=== PATIENT | male | born 1940 | race Caucasian/White ===

== ENCOUNTER 2020-06-16 13:28 | Observation (INO) ==
[2020-06-16] MEDS ORDERED: Naloxone 0.4 MG/ML INJ IVP PRN (15:09)
[2020-06-16] MEDS ORDERED: Ondansetron ODT 4 MG TAB.RAPDIS SL PRN (15:09)
[2020-06-16] MEDS ORDERED: Mag Hydrox/Al Hydrox/Simeth 30 ML UDC PO PRN (15:09)
[2020-06-16] MEDS ORDERED: Acetaminophen 325 MG TABLET PO PRN (15:09)
[2020-06-16 15:42] LABS: Basophils % 0.9 %; Eosinophils # 0.1 K/mcL (0.0-0.6); Eosinophils % 1.9 %; Hematocrit 40.6 % (37.5-50.1); Hemoglobin 13.8 g/dL (12.9-16.9); Immature Granulocytes % 0.2 % (0-4); Lymphocytes # 1.8 K/mcL (0.6-4.6); Lymphocytes % 38.1 %; Mean Corpuscular Hemoglobin 32.4 pg (28.0-33.3); Mean Corpuscular Volume 95.3 fL (83.0-100.0); Mean Platelet Volume 12.1 fL (9.4-12.4); Monocytes # 0.5 K/mcL (0.0-1.3); Monocytes % 11.2 %; Neutrophils # 2.2 K/mcL (1.6-8.9); Platelet Count 149 K/mcL (140-400); Red Blood Count 4.26 M/mcL (4.19-5.50); Red Cell Distribution Width 13.8 % (11.5-14.5); Segmented Neutrophils % 47.7 %; White Blood Count 4.6 K/mcL (4.3-11.1)
[2020-06-16 16:04] LABS: Alanine Aminotransferase 18 Units/L (7-52); Albumin 4.2 g/dL (3.5-5.7); Albumin/Globulin Ratio 1.1 (1.1-2.2); Alkaline Phosphatase 37 Units/L (34-104); Aspartate Amino Transferase 20 Units/L (13-39); BUN/Creatinine Ratio 13 (6-26); Bilirubin,Total 0.8 mg/dL (0.3-1.0); Blood Urea Nitrogen 11 mg/dL (8-23); Carbon Dioxide 24 mEq/L (23-29); Chloride 107 mEq/L (98-107); Globulin 3.9 g/dL (2.4-3.5); Glucose 97 mg/dL (70-105); Magnesium 1.7 mg/dL (1.6-2.6); Osmolality,Calculated 285 (280-300); Potassium 4.2 mEq/L (3.5-5.1); Sodium 138 mEq/L (136-145); Total Protein 8.1 g/dL (6.4-8.9); Troponin I < 0.03 ng/mL (< 0.04); eGFR For African Americans > 60 (> 60); eGFR For Non-African Americans > 60 (> 60)
[2020-06-16] MEDS ORDERED: Perflutren Lipid Microsphere 1.3 ML in 0.9 % Sodium Chloride 8.7 ML IVP PRN (16:41)
[2020-06-16] MEDS ORDERED: Furosemide 40 MG/4 ML VIAL IVP ONE (17:36)
[2020-06-16] MEDS ORDERED: Aspirin 325 MG TABLET PO ONE (17:37)
[2020-06-16] MEDS ORDERED: Warfarin perPT PO PRN (18:00)
[2020-06-16 18:15] LABS: INR 2.2; Prothrombin Time 24.8 Seconds (9.4-12.1)
[2020-06-16] MEDS ORDERED: *HR* Warfarin 5 MG TABLET PO SCH (20:00)
[2020-06-16] MEDS: carvediloL 6.25 MG TABLET PO SCH (22:12)
[2020-06-17 03:58] LABS: Chol/HDL Ratio 5.3 (0-4.9)
[2020-06-17 04:06] LABS: INR 2.4; Prothrombin Time 26.9 Seconds (9.4-12.1)
[2020-06-17] MEDS ORDERED: Tiotropium 10 INH DOSE IH SCH (07:00)
[2020-06-17] MEDS: carvediloL 6.25 MG TABLET PO SCH (07:48)
[2020-06-17] MEDS ORDERED: amLODIPine 5 MG TABLET PO SCH (09:00)
[2020-06-17] MEDS ORDERED: Furosemide 20 MG TABLET PO SCH (10:00)
[2020-06-17 15:40] VITALS: BP 143/78
[2020-06-17] MEDS ORDERED: *HR* Warfarin 5 MG TABLET PO ONE (18:00)
== END 2020-06-17 16:37 | disposition home or self-care (01) ==
LOC: 3BNU → SUATTDRO 14:32
PROVIDERS: ADMIT Family Medicine; ATTEND Family Medicine